=== PATIENT | male | born 1930 | race Caucasian/White ===

== ENCOUNTER 2016-12-28 15:30 | Inpatient (IN) | payer MEDICARE, OTHER ==
[2016-12-28 17:14] VITALS: BMI 27.8
[2016-12-28] MEDS ORDERED: DOCUSATE SODIUM 100 MG CAPSULE PO PRN (18:51)
[2016-12-28] MEDS ORDERED: SENNOSIDES 8.6 MG TABLET PO PRN (18:51)
[2016-12-28] MEDS ORDERED: NITROGLYCERIN 0.4 MG TAB.SUBL SL PRN (18:51)
[2016-12-28] MEDS ORDERED: PHENAZOPYRIDINE HCL 200 MG TABLET PO PRN (18:54)
[2016-12-28] MEDS ORDERED: ENOXAPARIN SODIUM 30 MG/0.3 ML DISP.SYRIN SQ SCH (19:00)
[2016-12-28] MEDS ORDERED: ATORVASTATIN CALCIUM 80 MG TABLET PO ONE (19:03)
[2016-12-28] MEDS: oxyCODONE HCL 10 MG TAB.ER.12H PO SCH (19:06)
--- NOTE | 2016-12-28 19:21 | History and Physical Report ---
History of Present Illnes - History of Present Illness Reason for Visit: Gait disturbance History of Present Illness: 86 you white male who has been diagnosed with bladder cancer, low grade carcinoma insitu. He was receiving intravesicular treatments. 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 Recent has been found to have metastatic disease to his liver. Patient has received radiation treatment to his spine and states that his pain is improving at this time. Patient wast transfer here for rehab services. - Past Medical History Cardiac: HTN Pulmonary: Sleep Apnea Gastrointestinal: Diverticulosis, Other Heme/Onc: Cancer Endocrine: Diabetes (type 2) - Past Surgical History Past Surgical History: Cholecystectomy, Other (cardiac cath with stenting, reesction of bladder cancer twice, inguinal hernia repair, Partial colectomy) - Past Family History Mother Family History: CAD, Father Family History: (advanced age) Sister 1 Family History: None (cancer), Cancer (breast) Brother 1 Family History: DM - Past Social History Smoke: No Alcohol: None Drugs: None Lives: With Family Domestic Violence: Negative - Health Maintenance Health Maintenance: Cholesterol, Influenza Vaccine, Pneumococcal Vaccine Pneumonia Vaccine: Yes Resuscitation Status: Resusciation Status Resuscitation Status Do Not Resuscitate - Unable to Obtain History Unable to Obtain: No Review of Systems - Review of Systems Constitutional: Weakness. negative: Fever, Chills Eyes: negative: pain, vision change ENT: negative: Ear Pain, Ear Discharge, Nose Pain, Nose Discharge, Nose Congestion Respiratory: negative: Cough, Dry, Shortness of Breath, Hemoptysis, SOB with Excertion, Pleuritic Pain, Sputum, Wheezing Cardiovascular: negative: Chest Pain, Palpitations, Orthopnea, Paroxysmal Noc. Dyspnea, Edema, Light Headedness Gastrointestinal: Nausea (improved), Abdominal Pain (improved), Constipation. negative: Vomiting, Diarrhea, Melena, Hematochezia Genitourinary: Dysuria, Frequency, Hematuria, Other (cantu cath place for bladder cancer, is to remain in place per urologist) Musculoskeletal: Back Pain Skin: negative: Rash, Lesions Neurological: Confusion (during acute hosptial stay, back to baseline). negative: Weakness, Numbness, Incoordination, Change in Speech - Medications/Allergies Allergies/Adverse Reactions: Allergies Allergy/AdvReac Type Severity Reaction Status Date / Time Sulfa (Sulfonamide Allergy Intermediate Rash Verified 12/28/16 16:00 Antibiotics) ciprofloxacin [From Cipro] Allergy Verified 12/28/16 16:00 ciprofloxacin HCl Allergy Verified 12/28/16 16:00 [From Cipro] Home Medications: Home Medications Amiodarone HCl [Pacerone] 200 mg PO DAILY 12/28/16 Aspirin [Adult Low Dose Aspirin EC] 81 mg PO DAILY 12/28/16 Atorvastatin Calcium 40 mg PO DAILY 12/28/16 Clopidogrel Bisulfate [Clopidogrel] 75 mg PO DAILY 12/28/16 Docusate Sodium [Colace] 100 mg PO BID PRN 12/28/16 Insulin Detemir [Levemir Flex-Pen] 30 unit SQ HS 12/28/16 Losartan Potassium [Cozaar] 50 mg PO DAILY 12/28/16 Metformin HCl [Glucophage] 1,[place] [address] 12/28/16 Metoprolol Succinate [Toprol Xl] 50 mg PO DAILY 12/28/16 Nitroglycerin [Nitroquick] 0.4 mg SL Q5M PRN 12/28/16 Omeprazole [Prilosec] 40 mg PO 717 12/28/16 Oxycodone HCl [Oxycodone HCl ER] 10 mg PO Q12H 12/28/16 Phenazopyridine HCl [Azo Urinary Pain Relief] 97.5 mg PO TID PRN 12/28/16 QUEtiapine FUMARATE [Seroquel] 25 mg PO HS 12/28/16 Sennosides [Senna] 8.6 mg PO BID PRN 12/28/16 Sildenafil Citrate [Viagra] 100 mg PO DAILY 12/28/16 amLODIPine BESYLATE [Norvasc] 10 mg PO BID 12/28/16 gliPIZIDE [Glucotrol] [place] [address] 12/28/16 oxyCODONE HCL [Percolone] 5 mg PO Q4 PRN 12/28/16 Current Inpatient Medications: Current Inpatient Medications Amiodarone HCl (Pacerone) 200 mg PO DAILY [facility] [place] Amlodipine Besylate (Norvasc) 10 mg PO BID [facility] Aspirin (Ecotrin) 81 mg PO DAILY [facility] Atorvastatin Calcium (Lipitor) 40 mg PO HS [facility] [place] Clopidogrel Bisulfate (Plavix) 75 mg PO DAILY [facility] Docusate Sodium (Colace) 100 mg PO BID PRN PRN Reason: Constipation Enoxaparin Sodium (Lovenox) 30 mg SQ QD [facility] [place] Stop: 01/10/17 19:01 Last Admin: 12/28/16 19:06 Dose: 30 mg Glipizide (Glucotrol) 10 [place] [address] [facility] Insulin Detemir (Levemir Flex-Pen) 30 unit SQ HS [facility] Losartan Potassium (Cozaar) 50 mg PO DAILY [facility] [place] Metformin HCl (Glucophage) 1,000 [place] [address] [facility] [place] Metoprolol Succinate (Toprol Xl) 50 mg PO DAILY [facility] [place] Miscellaneous (Chem Sticks) 1 each MC CHEMX2 [facility] Nitroglycerin (Nitroquick) 0.4 mg SL Q5M PRN PRN Reason: Chest Pain Oxycodone HCl (Percolone) 5 mg PO Q4 PRN PRN Reason: PAIN Oxycodone HCl (Oxycontin) 10 mg PO Q12H [facility] [place] Last Admin: 12/28/16 19:06 Dose: 10 mg Pantoprazole Sodium (Protonix) 40 mg PO 0700 [facility] [place] Phenazopyridine HCl (Pyridium) 200 mg PO TID PRN PRN Reason: urinary symptoms Quetiapine Fumarate (Seroquel) 25 mg PO HS [facility] Sennosides (Senokot) 8.6 mg PO BID PRN PRN Reason: Constipation Exam - Exam Vital Signs: Vital Signs (72 hours) 12/28/16 16:00 Temperature 98.0 F Pulse Rate [ 97 H Right] Respiratory 20 Rate Blood Pressure 149/61 [Right Arm] O2 Sat by Pulse 93 Oximetry General: Alert, Oriented to Person, Oriented to Place, Oriented to Time, Cooperative, Average Body Habits HEENT: Atraumatic, PERRLA, EOMI, Mouth Mucous membr. moist/[place], Nose Mucous membr. moist/[place]el[place], Decreased Hearing Acuity. No: Pharyngeal Erythema, Tonsillar Exudate, Tonsillar Swelling Neck: Normal Range of Motion. No: Stridor, Rigidity, Lymphadenopathy Carotids: WNL Thyroid: WNL Lungs: Clear to auscultation, Normal air movement, Speaks full Sentences. No: Wheezes, Rales, Rhonchi, Stridor Cardiovascular: Regular rate, Normal S1, Normal S2, No murmurs. No: Gallops, Rubs Abdomen: Normal bowel sounds, Soft, Other (mild diffuse tenderness, no guarding or rebound tenderness noted), Vental Hernia. No: Distended Integumentary: Normal, [place], Warm, Dry Extremities: No clubbing, No cyanosis, No edema, Normal pulses, No tenderness/ swelling Neurological: Normal gait, Normal speech, Strength Equal Bilat (weak), Normal tone, Sensation intact, Cranial nerves 3-12 NL, Reflexes 2+ Psych/Mental Status: Mental status NL, Mood NL, Appropriate Affect, Intact Judgment Assessment/Plan - Assessment/Plan (1) Unsteady gait Status: Acute Current Visit: No Assessment: PT and OT consultation (2) Malignant neoplasm metastatic from bladder Status: Acute Current Visit: Yes Assessment: L4 adn L5, liver, 5th rib, posterior bladder wall thickening, (3) Bladder cancer Status: Acute Current Visit: Yes Qualifiers: Bladder location: unspecified site Qualified Code(s): C67.9 - Malignant neoplasm of bladder, unspecified (4) Diabetes mellitus type 2 Status: Chronic Current Visit: Yes Assessment: will continue with home meds and monitor BS (5) Essential hypertension Status: Chronic Current Visit: Yes Assessment: Continue with home meds and monitor BP (6) Compression fracture of L5 lumbar vertebra Status: Acute Current Visit: Yes (7) PSVT (paroxysmal supraventricular tachycardia) Status: Chronic Current Visit: Yes Assessment: Continue amiodrarone VTE Assessment - RISK FACTOR SCORE VTE RISK FACTOR SCORES: AGE OVER 60 YEARS, ANTICIPATED BED CONFINEMENT OR IMMOBILIZATION > 24 HOURS - RISK VTE MODERATE RISK: SCORE OF 2 (RISK PROXIMAL DVT 2-4%) PROPHYAXIS NEEDED
[2016-12-28] MEDS ORDERED: ATORVASTATIN CALCIUM 80 MG TABLET PO SCH (21:00)
[2016-12-28] MEDS: amLODIPine BESYLATE 5 MG TABLET PO SCH (21:28)
[2016-12-28] MEDS: QUEtiapine FUMARATE 25 MG TABLET PO SCH (21:29)
[2016-12-28] MEDS: INSULIN DETEMIR 100 UNIT/ML 3ML PEN.INJCTR SQ SCH (21:33)
[2016-12-29] MEDS: PANTOPRAZOLE SODIUM 40 MG TABLET PO SCH (05:47)
[2016-12-29] MEDS: oxyCODONE HCL 10 MG TAB.ER.12H PO SCH ×2 (05:47→21:07)
[2016-12-29] MEDS: oxyCODONE HCL 5 MG TABLET PO PRN ×2 (07:36→11:40)
[2016-12-29] MEDS: AMIODARONE HCL 200 MG TABLET PO SCH (08:45)
[2016-12-29] MEDS: LOSARTAN POTASSIUM 50 MG TABLET PO SCH (08:45)
[2016-12-29] MEDS: CLOPIDOGREL BISULFATE 75 MG TABLET PO SCH (08:45)
[2016-12-29] MEDS: amLODIPine BESYLATE 5 MG TABLET PO SCH ×2 (08:45→20:05)
[2016-12-29] MEDS: ASPIRIN EC 81 MG TABLET.DR PO SCH (08:46)
[2016-12-29] MEDS: METOPROLOL SUCCINATE 50 MG TAB.ER.24H PO SCH (08:46)
[2016-12-29] MEDS ORDERED: SIMVASTATIN 40 MG TABLET ONE (14:28)
[2016-12-29] MEDS: SIMVASTATIN 40 MG TABLET PO SCH (20:01)
[2016-12-29] MEDS: QUEtiapine FUMARATE 25 MG TABLET PO SCH (20:02)
[2016-12-29] MEDS: INSULIN DETEMIR 100 UNIT/ML 3ML PEN.INJCTR SQ SCH (20:07)
[2016-12-30] MEDS: PANTOPRAZOLE SODIUM 40 MG TABLET PO SCH (06:21)
[2016-12-30] MEDS: oxyCODONE HCL 10 MG TAB.ER.12H PO SCH ×2 (06:22→18:25)
--- NOTE | 2016-12-30 07:48 | Inpatient Progress Note ---
Subjective - Required Recertification Statement I anticipate X number of days because-include discharge plan: 2 weeks - Review of Systems Events since last encounter: Patient seems to be doing well. Pain is doing well. Is participating with PT and OT. Has been having some hypoglycemic episodes with BS in the 50s. General: Denies: Chills, Night Sweats HEENT: Denies: Head Aches Pulmonary: Denies: Dyspnea, Cough Cardiovascular: Denies: Chest Pain, Palpitations Gastrointestinal: Nausea, Abdominal Pain, Constipation. Denies: Vomiting, Diarrhea, Melena, Hematochezia Genitourinary: Denies: Dysuria, Frequency, Hematuria Objective - Exam Vitals and I&O: Vital Signs Temp 97.3 F L 12/29/16 21:00 Pulse 74 12/29/16 21:00 Resp 18 12/29/16 21:00 BP 104/49 12/29/16 21:00 Pulse Ox 97 12/29/16 21:00 Intake & Output 12/29/16 12/29/16 12/30/16 11:59 23:59 11:59 Intake Total 240 1080 240 Output Total 200 Balance 40 1080 240 Intake: Oral 240 1080 240 Output: Urine 200 Other: Voiding Method Indwelling Catheter Indwelling Catheter # Voids 1 3 # Bowel Movements 0 0 General: Alert, Oriented to Person, Oriented to Place, Oriented to Time, Cooperative Neck: Supple, No JVD Lungs: Clear to auscultation, Normal air movement, Speaks full Sentences. No: Wheezes, Rales, Rhonchi, Stridor Cardiovascular: Regular rate, Normal S1, Normal S2, No murmurs Abdomen: Normal bowel sounds, Soft, Vental Hernia Skin: Normal, [place], Warm, Dry Neurological: Normal speech, Strength Equal Bilat Psych/Mental Status: Mental status NL, Mood NL, Appropriate Affect, Intact Judgment Assessment/Plan - Assessment/Plan (1) Unsteady gait Status: Acute Assessment: Continue with PT and OT (2) Malignant neoplasm metastatic from bladder Status: Acute Assessment: Pain stable (3) Diabetes mellitus type 2 Status: Chronic Narrative Support Text: Hypoglycemia, will discontinue glipizide and decrease Levemir insulin to 15 units daily (4) Essential hypertension Status: Chronic Assessment: Stable (5) PSVT (paroxysmal supraventricular tachycardia) Status: Chronic Assessment: stable
[2016-12-30] MEDS: CLOPIDOGREL BISULFATE 75 MG TABLET PO SCH (09:41)
[2016-12-30] MEDS: amLODIPine BESYLATE 5 MG TABLET PO SCH ×2 (09:42→20:40)
[2016-12-30] MEDS: AMIODARONE HCL 200 MG TABLET PO SCH (09:42)
[2016-12-30] MEDS: oxyCODONE HCL 5 MG TABLET PO PRN ×4 (09:42→23:19)
[2016-12-30] MEDS: LOSARTAN POTASSIUM 50 MG TABLET PO SCH (09:42)
[2016-12-30] MEDS: ASPIRIN EC 81 MG TABLET.DR PO SCH (09:42)
[2016-12-30 09:43] LABS: BASOPHILS % 0.2 (0.0-1.5); EOSINOPHILS % 3.4 % (0.0-6.8); LYMPHOCYTES # 0.9 # k/uL (0.6-4.0); MEAN CORPUSCULAR HEMOGLOBIN 24.8 pg (28.0-34.0); MONOCYTES # 0.3 # k/uL (0.0-0.9); NEUTROPHILS # 6.2 # k/uL (1.4-7.7)
[2016-12-30] MEDS: METOPROLOL SUCCINATE 50 MG TAB.ER.24H PO SCH (09:43)
[2016-12-30 09:56] LABS: eGFR (African) > 60; eGFR (Non-African) 51
[2016-12-30] MEDS ORDERED: LIDOCAINE Urojet 5 ML JEL MM PRN (16:42)
[2016-12-30] MEDS: SIMVASTATIN 40 MG TABLET PO SCH (20:40)
[2016-12-30] MEDS: QUEtiapine FUMARATE 25 MG TABLET PO SCH (20:40)
[2016-12-30] MEDS: INSULIN DETEMIR 100 UNIT/ML 3ML PEN.INJCTR SQ SCH (20:41)
[2016-12-31] MEDS: PANTOPRAZOLE SODIUM 40 MG TABLET PO SCH (06:11)
[2016-12-31] MEDS: oxyCODONE HCL 10 MG TAB.ER.12H PO SCH ×2 (06:11→19:13)
[2016-12-31] MEDS: ASPIRIN EC 81 MG TABLET.DR PO SCH (09:59)
[2016-12-31] MEDS: AMIODARONE HCL 200 MG TABLET PO SCH ×2 (09:59→10:00)
[2016-12-31] MEDS: METOPROLOL SUCCINATE 50 MG TAB.ER.24H PO SCH (10:00)
[2016-12-31] MEDS: amLODIPine BESYLATE 5 MG TABLET PO SCH ×2 (10:00→20:56)
[2016-12-31] MEDS: LOSARTAN POTASSIUM 50 MG TABLET PO SCH (10:00)
[2016-12-31] MEDS: CLOPIDOGREL BISULFATE 75 MG TABLET PO SCH (10:05)
[2016-12-31] MEDS: oxyCODONE HCL 5 MG TABLET PO PRN ×2 (10:35→20:56)
[2016-12-31] MEDS: QUEtiapine FUMARATE 25 MG TABLET PO SCH (20:56)
[2016-12-31] MEDS: SIMVASTATIN 40 MG TABLET PO SCH (20:56)
[2016-12-31] MEDS: INSULIN DETEMIR 100 UNIT/ML 3ML PEN.INJCTR SQ SCH (20:57)
[2017-01-01] MEDS: PANTOPRAZOLE SODIUM 40 MG TABLET PO SCH (05:32)
[2017-01-01] MEDS: oxyCODONE HCL 5 MG TABLET PO PRN ×2 (05:33→18:33)
[2017-01-01] MEDS: LOSARTAN POTASSIUM 50 MG TABLET PO SCH (07:48)
[2017-01-01] MEDS: amLODIPine BESYLATE 5 MG TABLET PO SCH ×2 (07:48→19:55)
[2017-01-01] MEDS: METOPROLOL SUCCINATE 50 MG TAB.ER.24H PO SCH (07:48)
[2017-01-01] MEDS: ASPIRIN EC 81 MG TABLET.DR PO SCH (07:48)
[2017-01-01] MEDS: CLOPIDOGREL BISULFATE 75 MG TABLET PO SCH (07:49)
[2017-01-01] MEDS: oxyCODONE HCL 10 MG TAB.ER.12H PO SCH (18:35)
[2017-01-01] MEDS: SIMVASTATIN 40 MG TABLET PO SCH (19:54)
[2017-01-01] MEDS: QUEtiapine FUMARATE 25 MG TABLET PO SCH (19:55)
[2017-01-01] MEDS: INSULIN DETEMIR 100 UNIT/ML 3ML PEN.INJCTR SQ SCH (21:23)
[2017-01-02] MEDS: oxyCODONE HCL 10 MG TAB.ER.12H PO SCH ×2 (05:59→18:35)
[2017-01-02] MEDS: PANTOPRAZOLE SODIUM 40 MG TABLET PO SCH (05:59)
[2017-01-02] MEDS: amLODIPine BESYLATE 5 MG TABLET PO SCH ×2 (08:27→20:15)
[2017-01-02] MEDS: oxyCODONE HCL 5 MG TABLET PO PRN ×2 (08:27→20:15)
[2017-01-02] MEDS: ASPIRIN EC 81 MG TABLET.DR PO SCH (08:28)
[2017-01-02] MEDS: AMIODARONE HCL 200 MG TABLET PO SCH (08:28)
[2017-01-02] MEDS: CLOPIDOGREL BISULFATE 75 MG TABLET PO SCH (08:28)
[2017-01-02] MEDS: METOPROLOL SUCCINATE 50 MG TAB.ER.24H PO SCH (08:28)
[2017-01-02] MEDS: LOSARTAN POTASSIUM 50 MG TABLET PO SCH (08:28)
[2017-01-02] MEDS: SIMVASTATIN 40 MG TABLET PO SCH (20:15)
[2017-01-02] MEDS: QUEtiapine FUMARATE 25 MG TABLET PO SCH (20:15)
[2017-01-02] MEDS: INSULIN DETEMIR 100 UNIT/ML 3ML PEN.INJCTR SQ SCH (20:19)
[2017-01-03] MEDS: PANTOPRAZOLE SODIUM 40 MG TABLET PO SCH (06:44)
[2017-01-03] MEDS: oxyCODONE HCL 10 MG TAB.ER.12H PO SCH ×2 (06:44→18:46)
[2017-01-03] MEDS: LOSARTAN POTASSIUM 50 MG TABLET PO SCH (08:27)
[2017-01-03] MEDS: CLOPIDOGREL BISULFATE 75 MG TABLET PO SCH (08:28)
[2017-01-03] MEDS: ASPIRIN EC 81 MG TABLET.DR PO SCH (08:28)
[2017-01-03] MEDS: METOPROLOL SUCCINATE 50 MG TAB.ER.24H PO SCH (08:28)
[2017-01-03] MEDS: AMIODARONE HCL 200 MG TABLET PO SCH (08:28)
[2017-01-03] MEDS: amLODIPine BESYLATE 5 MG TABLET PO SCH ×2 (08:28→20:12)
[2017-01-03] MEDS: oxyCODONE HCL 5 MG TABLET PO PRN ×2 (11:33→16:08)
[2017-01-03] MEDS: QUEtiapine FUMARATE 25 MG TABLET PO SCH (20:12)
[2017-01-03] MEDS: SIMVASTATIN 40 MG TABLET PO SCH (20:12)
[2017-01-03] MEDS: INSULIN DETEMIR 100 UNIT/ML 3ML PEN.INJCTR SQ SCH (20:24)
[2017-01-04] MEDS: oxyCODONE HCL 5 MG TABLET PO PRN ×2 (02:00→16:38)
[2017-01-04] MEDS: ASPIRIN EC 81 MG TABLET.DR PO SCH (09:00)
[2017-01-04] MEDS: CLOPIDOGREL BISULFATE 75 MG TABLET PO SCH (09:00)
[2017-01-04] MEDS: LOSARTAN POTASSIUM 50 MG TABLET PO SCH (09:00)
[2017-01-04] MEDS: amLODIPine BESYLATE 5 MG TABLET PO SCH ×2 (09:00→20:27)
[2017-01-04] MEDS: AMIODARONE HCL 200 MG TABLET PO SCH (09:00)
[2017-01-04] MEDS: METOPROLOL SUCCINATE 50 MG TAB.ER.24H PO SCH (09:00)
[2017-01-04] MEDS: oxyCODONE HCL 10 MG TAB.ER.12H PO SCH ×2 (10:07→18:29)
[2017-01-04] MEDS: PANTOPRAZOLE SODIUM 40 MG TABLET PO SCH (10:08)
[2017-01-04] MEDS: SIMVASTATIN 40 MG TABLET PO SCH (20:27)
[2017-01-04] MEDS: QUEtiapine FUMARATE 25 MG TABLET PO SCH (20:27)
[2017-01-04] MEDS: INSULIN DETEMIR 100 UNIT/ML 3ML PEN.INJCTR SQ SCH (20:28)
[2017-01-05] MEDS: oxyCODONE HCL 10 MG TAB.ER.12H PO SCH ×2 (06:17→18:25)
[2017-01-05] MEDS: PANTOPRAZOLE SODIUM 40 MG TABLET PO SCH (06:17)
[2017-01-05] MEDS: ASPIRIN EC 81 MG TABLET.DR PO SCH (08:02)
[2017-01-05] MEDS: METOPROLOL SUCCINATE 50 MG TAB.ER.24H PO SCH (08:02)
[2017-01-05] MEDS: CLOPIDOGREL BISULFATE 75 MG TABLET PO SCH (08:02)
[2017-01-05] MEDS: amLODIPine BESYLATE 5 MG TABLET PO SCH ×2 (08:02→19:46)
[2017-01-05] MEDS: LOSARTAN POTASSIUM 50 MG TABLET PO SCH (08:02)
[2017-01-05] MEDS: AMIODARONE HCL 200 MG TABLET PO SCH (08:02)
[2017-01-05] MEDS: INSULIN DETEMIR 100 UNIT/ML 3ML PEN.INJCTR SQ SCH (19:44)
[2017-01-05] MEDS: QUEtiapine FUMARATE 25 MG TABLET PO SCH (19:46)
[2017-01-05] MEDS: SIMVASTATIN 40 MG TABLET PO SCH (19:46)
[2017-01-06] MEDS: oxyCODONE HCL 10 MG TAB.ER.12H PO SCH ×2 (06:03→18:57)
[2017-01-06] MEDS: PANTOPRAZOLE SODIUM 40 MG TABLET PO SCH (06:04)
[2017-01-06] MEDS: ASPIRIN EC 81 MG TABLET.DR PO SCH (08:33)
[2017-01-06] MEDS: LOSARTAN POTASSIUM 50 MG TABLET PO SCH (08:33)
[2017-01-06] MEDS: amLODIPine BESYLATE 5 MG TABLET PO SCH ×2 (08:34→20:16)
[2017-01-06] MEDS: AMIODARONE HCL 200 MG TABLET PO SCH (08:35)
[2017-01-06] MEDS: CLOPIDOGREL BISULFATE 75 MG TABLET PO SCH (08:35)
[2017-01-06] MEDS: METOPROLOL SUCCINATE 50 MG TAB.ER.24H PO SCH (08:36)
[2017-01-06] MEDS: oxyCODONE HCL 5 MG TABLET PO PRN (14:51)
[2017-01-06] MEDS: QUEtiapine FUMARATE 25 MG TABLET PO SCH (20:16)
[2017-01-06] MEDS: SIMVASTATIN 40 MG TABLET PO SCH (20:17)
[2017-01-06] MEDS: INSULIN DETEMIR 100 UNIT/ML 3ML PEN.INJCTR SQ SCH (21:03)
[2017-01-07] MEDS: PANTOPRAZOLE SODIUM 40 MG TABLET PO SCH (06:06)
[2017-01-07] MEDS: oxyCODONE HCL 10 MG TAB.ER.12H PO SCH (06:06)
[2017-01-07 07:57] VITALS: BP 124/65
[2017-01-07] MEDS: METOPROLOL SUCCINATE 50 MG TAB.ER.24H PO SCH (08:34)
[2017-01-07] MEDS: CLOPIDOGREL BISULFATE 75 MG TABLET PO SCH (08:34)
[2017-01-07] MEDS: ASPIRIN EC 81 MG TABLET.DR PO SCH (08:34)
[2017-01-07] MEDS: LOSARTAN POTASSIUM 50 MG TABLET PO SCH (08:34)
[2017-01-07] MEDS: amLODIPine BESYLATE 5 MG TABLET PO SCH (08:34)
[2017-01-07] MEDS: AMIODARONE HCL 200 MG TABLET PO SCH (08:34)
--- NOTE | 2017-01-26 13:10 | Discharge Summary ---
Discharge Summary - Discharge Sumary History of Present Illness: 86 you white male who has been diagnosed with bladder cancer, low grade carcinoma insitu. He was receiving intravesicular treatments. 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 Recent has been found to have metastatic disease to his liver. Patient has received radiation treatment to his spine and states that his pain is improving at this time. Patient wast transfer here for rehab services. Condition at Discharge: Guarded Home Medications: Ambulatory Orders Medication Instructions Recorded Amiodarone HCl [Pacerone] 200 mg PO DAILY 12/28/16 Aspirin [Adult Low Dose Aspirin EC] 81 mg PO DAILY 12/28/16 Clopidogrel Bisulfate [Clopidogrel] 75 mg PO DAILY 12/28/16 Docusate Sodium [Colace] 100 mg PO BID PRN 12/28/16 Insulin Detemir [Levemir Flex-Pen] 30 unit SQ HS 12/28/16 Losartan Potassium [Cozaar] 50 mg PO DAILY 12/28/16 Metformin HCl [Glucophage] 1,000 [place] [address] 12/28/16 Metoprolol Succinate [Toprol XL] 50 mg PO DAILY 12/28/16 Nitroglycerin [Nitroquick] 0.4 mg SL Q5M PRN 12/28/16 Omeprazole [Prilosec] 40 mg PO 717 12/28/16 Oxycodone HCl [Oxycodone HCl ER] 10 mg PO Q12H 12/28/16 Phenazopyridine HCl [Azo Urinary 97.5 mg PO TID PRN 12/28/16 Pain Relief] QUEtiapine FUMARATE [Seroquel] 25 mg PO HS 12/28/16 Sennosides [Senna] 8.6 mg PO BID PRN 12/28/16 amLODIPine BESYLATE [Norvasc] 10 mg PO BID 12/28/16 gliPIZIDE [Glucotrol] 10 mg PO 12/28/16 oxyCODONE HCL [Percolone] 5 mg PO Q4 PRN 12/28/16 Consultations this Visit: None Procedures this Visit: None Allergies/Adverse Reactions: Allergies Allergy/AdvReac Type Severity Reaction Status Date / Time Sulfa (Sulfonamide Allergy Intermediate Rash Verified 12/28/16 16:00 Antibiotics) ciprofloxacin [From Cipro] Allergy Verified 12/28/16 16:00 ciprofloxacin HCl Allergy Verified 12/28/16 16:00 [From Cipro] Discharge Summary: Patient was started on PT and OT therapy. He did well participating but towards the end of his SNF stay he started to have some increase difficulties participating in his therapy. Patient started to have some increase abd pain during his stay. It was felt that his cancer was progressing and patient and family decided to be admitted to [facility] for residential care and are thinking about comfort measures only for him. DM remained stable during his stay. Hypertension was stable on his home medications. Patient was transferred to [facility] care in stable but guarded condition. - Final Diagnosis (1) Unsteady gait Problems: improved, but patient is becoming weaker. (2) Malignant neoplasm metastatic from bladder Problems: progressing (3) Diabetes mellitus type 2 Problems: stable, continue home meds (4) Essential hypertension Problems: stable
--- NOTE | 2017-01-26 13:13 | Inpatient Progress Note ---
Subjective - Required Recertification Statement I anticipate X number of days because-include discharge plan: 7 days - Review of Systems Events since last encounter: Patient seems to be doing a little worse today. According to the nursing staff patient is having more pain, but he states that he is doing well at this time. He has has been confused some. Is participating with PT and OT. HEENT: Denies: Head Aches Pulmonary: Denies: Dyspnea, Cough Cardiovascular: Denies: Chest Pain, Palpitations Gastrointestinal: Abdominal Pain (mkild). Denies: Nausea, Vomiting, Diarrhea, Constipation Genitourinary: Denies: Dysuria Objective - Exam Vitals and I&O: Vital Signs Temp 98.2 F 01/07/17 07:56 Pulse 75 01/07/17 09:00 Resp 16 01/07/17 09:00 BP 124/65 01/07/17 07:56 Pulse Ox 97 01/07/17 07:56 General: Alert, Oriented to Person, Oriented to Place. No: Oriented to Time HEENT: Atraumatic Neck: Supple, No JVD Lungs: Clear to auscultation, Normal air movement, Speaks full Sentences. No: Respiratory Distress, Wheezes, Rales, Rhonchi Cardiovascular: Regular rate, Normal S1, Normal S2, No murmurs Abdomen: Normal bowel sounds, Soft, Other (mild tenderness to to supra pubic area.). No: Distended Extremities: No clubbing, No cyanosis Skin: Normal, Dry Neurological: Normal tone Psych/Mental Status: Mental status NL, Mood NL. No: Intact Judgment - Results Results: Laboratory Results WBC 7.80 K/ul (4.00-12.00) 12/30/16 09:20 RBC 4.61 M/ul (3.90-5.20) 12/30/16 09:20 Hgb 11.4 g/dL (12.0-18.0) L 12/30/16 09:20 Hct 37.8 % (37.0-53.0) 12/30/16 09:20 MCV 82.1 fl (80.0-100.0) 12/30/16 09:20 MCH 24.8 pg (28.0-34.0) L 12/30/16 09:20 MCHC 30.2 g/dL (30.0-36.0) 12/30/16 09:20 RDW 13.6 % (11.3-14.3) 12/30/16 09:20 Plt Count 398 K/mm3 (130-400) 12/30/16 09:20 Neut % (Auto) 79.7 % (39.0-79.0) H 12/30/16 09:20 Lymph % (Auto) 11.6 % (16.0-50.0) L 12/30/16 09:20 [place] % (Auto) 4.0 % (0.0-11.0) 12/30/16 09:20 Eos % (Auto) 3.4 % (0.0-6.8) 12/30/16 09:20 Baso % (Auto) 0.2 (0.0-1.5) 12/30/16 09:20 Neut # 6.2 # k/uL (1.4-7.7) 12/30/16 09:20 Lymph # 0.9 # k/uL (0.6-4.0) 12/30/16 09:20 Crowley # 0.3 # k/uL (0.0-0.9) 12/30/16 09:20 Eos # 0.3 # k/uL (0.0-0.6) 12/30/16 09:20 Baso # 0.0 # k/uL (0.0-0.5) 12/30/16 09:20 Reactive Lymphs % 1.2 % (0.0-5.0) 12/30/16 09:20 Reactive Lymphs # 0.1 # k/uL (0.0-0.8) 12/30/16 09:20 Sodium 134 mmol/L (136-145) L 12/30/16 09:20 Potassium 3.6 mmol/L (3.5-5.0) 12/30/16 09:20 Chloride 98 mmol/L (98-110) 12/30/16 09:20 Carbon Dioxide 33 mmol/L (20-32) H 12/30/16 09:20 BUN 19 mg/dL (10-26) 12/30/16 09:20 Creatinine 1.4 mg/dL (0.4-1.5) 12/30/16 09:20 Estimated Creat Clear 50 12/30/16 09:20 Est GFR ( Amer) > 60 (60-) 12/30/16 09:20 Est GFR (Non-Af Amer) 51 (60-) L 12/30/16 09:20 Glucose 122 mg/dL (70-99) H 12/30/16 09:20 Calcium 9.5 mg/dL (8.5-10.5) 12/30/16 09:20 Total Bilirubin 0.3 mg/dL (0.2-1.2) 12/30/16 09:20 AST 43 U/L (0-41) H 12/30/16 09:20 ALT 33 U/L (0-45) 12/30/16 09:20 Alkaline Phosphatase 153 U/L (46-116) H 12/30/16 09:20 Total Protein 7.1 g/dL (6.0-8.5) 12/30/16 09:20 Albumin 3.9 g/dL (3.0-5.5) 12/30/16 09:20 Assessment/Plan - Assessment/Plan (1) Unsteady gait Status: Acute Assessment: slightly improved (2) Malignant neoplasm metastatic from bladder Status: Acute Assessment: stable (3) Diabetes mellitus type 2 Status: Chronic (4) Essential hypertension Status: Chronic Assessment: stable (5) PSVT (paroxysmal supraventricular tachycardia) Status: Chronic
== END 2017-01-07 14:40 | DRG 92 ==
LOC: SOUTH 15:30
PROVIDERS: ADMIT Family Medicine; ATTEND Family Medicine
DX: R26.89 Other abnormalities of gait and mobility (principal); C78.7 Secondary malignant neoplasm of liver and intrahepatic bile duct; C79.51 Secondary malignant neoplasm of bone; M48.56XA Collapsed vertebra, not elsewhere classified, lumbar region, initial encounter for fracture; I47.1 Supraventricular tachycardia; C67.9 Malignant neoplasm of bladder, unspecified; E11.9 Type 2 diabetes mellitus without complications; I10 Essential (primary) hypertension
CPT/HCPCS: 36415; 80053; 85025; 97116; 97166; 97530; 97535; J1650; J1815

== ENCOUNTER 2017-01-07 14:40 | Inpatient (IN) | payer SELFPAY ==
[2017-01-07 07:57] VITALS: BP 124/65
== END 2017-01-18 08:30 | disposition expired | DRG 93 ==
LOC: ICF 14:40
PROVIDERS: ADMIT Family Medicine; ATTEND Family Medicine
DX: R26.81 Unsteadiness on feet (principal)